=== PATIENT | female | born 1960 | race Caucasian/White ===

== ENCOUNTER 2019-12-21 06:09 | Emergency (ER) | payer MEDICAID ==
[~2019-12-21] VITALS: Ht 160 cm; Wt 77.1 kg
[2019-12-21 06:09] VITALS: BP_SYST 158
--- NOTE | 2019-12-21 06:09 | NUR ---
Placed in room 01 . Placed on cardiac rehabilitation program director, blood pressure machine and pulse oximeter. To gown for exam. Side rails up.
--- NOTE | 2019-12-21 06:09 | NUR ---
Pt presents to ER with daughter with c/o altered mental status. Pt states she "mixed crystal meth with water and drank it." Pt states she drank water with crystal meth 40 minutes ago. Pt states disorientation began 15 minutes prior to arrival with one episode of emesis. Pt states "my vision is bouncing and my body is shaking." Upon assessment, pt presents to have resting tremors and eye rolling to back of head. Pt is alert and oriented upon assessment. Pt breath sounds bilaterally even with no use of accessory muscles. Will continue to monitor.
--- NOTE | 2019-12-21 06:10 | NUR ---
ER Dr. Saab at bedside examining patient.
[2019-12-21] MEDS ORDERED: NACL 0.9% 1,000 ML IV ONE (06:15)
--- NOTE | 2019-12-21 06:15 | NUR ---
Lee SCHMIDT at bedside doing EKG.
--- NOTE | 2019-12-21 06:17 | NUR ---
Grant SCHMIDT at bedside attempting to get IV access and blood.
--- NOTE | 2019-12-21 06:18 | NUR ---
# 18 gauge angiocath placed to LAC. Use of asceptic technique. Opsite placed over site. Blood return noted. Blood for lab drawn from site. Flushed with 10 cc of normal saline. No evidence of infiltration noted. Patient tolerated well.
[2019-12-21 06:47] LABS: BASOPHILS % (AUTO) 0.5 % (0.0-2.0); EOSINOPHILS # (AUTO) 0.5 K/uL (0.0-0.4); EOSINOPHILS % (AUTO) 6.8 % (0.0-4.0); HEMATOCRIT 42.8 % (36-48); HEMOGLOBIN 13.9 g/dL (12.0-16.0); LYMPHOCYTES # (AUTO) 3.3 K/uL (1.0-5.5); LYMPHOCYTES % (AUTO) 47.1 % (20.5-51.5); MEAN CORPUSCULAR HEMOGLOBIN 28 pg (27-31); MEAN CORPUSCULAR HGB CONC 33 % (32-36); MEAN CORPUSCULAR VOLUME 85 fL (79.0-98.0); MONOCYTES # (AUTO) 0.5 K/uL (0.0-1.0); MONOCYTES % (AUTO) 7.1 % (1.7-9.3); NEUTROPHILS # (AUTO) 2.7 K/uL (1.8-7.7); NEUTROPHILS % (AUTO) 38.5 % (40.0-70.0); PLATELET COUNT (AUTO) 269 K/uL (130-430); RED BLOOD CELL COUNT(AUTO) 5.01 MIL/uL (4.2-6.2); RED CELL DISTRIBUTION WIDTH 14.5 % (9.0-15.0); WHITE BLOOD COUNT (AUTO) 6.9 K/uL (4.8-10.8)
--- NOTE | 2019-12-21 06:49 | NUR ---
Radiology at bedside.
[2019-12-21 07:00] LABS: ANION GAP 13 (5-15); CALCIUM 8.9 mg/dL (8.4-11.0); CHLORIDE 103 mmol/L (98-107); CREATININE 0.84 mg/dL (0.55-1.30); GLUCOSE 125 mg/dL (70-99); POTASSIUM 3.4 mmol/L (3.5-5.1); SODIUM SERUM 139 mmol/L (136-145); UREA NITROGEN, BLOOD 18 mg/dL (8-21)
[2019-12-21 07:03] LABS: GFR AFRICAN AMERICAN 89 mL/min (>90)
[2019-12-21 07:06] LABS: ALANINE AMINOTRANSFERASE 27 U/L (12-78); ALBUMIN 3.6 g/dL (3.4-4.8); ASPARTATE AMINOTRANSFERASE 19 U/L (10-37); TOTAL BILIRUBIN 0.7 mg/dL (0.0-1.0)
[2019-12-21 07:07] LABS: PROTHROMBIN TIME 9.9 SECS (9.5-12.5)
[2019-12-21 07:09] LABS: ALCOHOL, BLOOD < 3 mg/dL (<10)
--- NOTE | 2019-12-21 07:10 | NUR ---
Report given to ROXANA Barrera to endorse all care.
[2019-12-21] MEDS ORDERED: ONDANSETRON HCL 4 MG/2 ML VIAL IVP ONE (07:30)
--- NOTE | 2019-12-21 07:40 | NUR ---
Patient is resting comfortably in bed. Still unable to provide a urine sample. Declined I&O cath. aware.
--- NOTE | 2019-12-21 08:12 | NUR ---
Patient ambulated to the bathroom with assistance. Urine specimen collected and sent to the lab.
--- NOTE | 2019-12-21 08:16 | NUR ---
ER Dr. Painting at bedside examining patient.
[2019-12-21] MEDS ORDERED: LORazepam 2 MG/ML VIAL IVP ONE (08:30)
--- NOTE | 2019-12-21 08:35 | NUR ---
Administered Ativan IVP as ordered by Dr. Painting. Patient tolerated the medication well. See eMAR for details.
[2019-12-21 08:57] LABS: BILIRUBIN,URINE NEGATIVE (NEGATIVE); BLOOD, URINE NEGATIVE (NEGATIVE); CLARITY/URINE CLEAR (CLEAR); COLOR,URINE YELLOW (YELLOW); GLUCOSE,URINE NEGATIVE (NEGATIVE); KETONES,URINE NEGATIVE (NEGATIVE); LEUKOCYTE ESTERASE ,URINE NEGATIVE (NEGATIVE); NITRITE, URINE NEGATIVE (NEGATIVE); PROTEIN URINE NEGATIVE (NEGATIVE); UROBILINOGEN,URINE 0.2 (0.2-1.0)
[2019-12-21 09:06] LABS: BARBITURATE, URINE NEGATIVE (NEG <=200); BENZODIAZEPINE, URINE NEGATIVE (NEG <=150); COCAINE, URINE NEGATIVE (NEG <=150); OPIATE, URINE NEGATIVE (NEG <=100); PHENCYCLIDINE SCREEN,URINE NEGATIVE (NEG <=25); UR TRICYCLIC ANTIDEPRESSANTS NEGATIVE (NEG <=300); URINE METHADONE NEGATIVE (NEG <=200); URINE OXYCODONE SCREEN NEGATIVE (NEG <=100); URINE PROPOXYPHENE SCREEN NEGATIVE (NEG <=300)
[2019-12-21 09:07] LABS: CANNABINOID, URINE POSITIVE (NEG <=50); METHAMPHETAMINES SCREEN,URINE POSITIVE (NEG <=500); URINE AMPHETAMINE POSITIVE (NEG <=500)
--- NOTE | 2019-12-21 09:50 | NUR ---
Patient given written and verbal discharge instructions and verbalizes understanding. ER MD discussed with patient the results and treatment provided. Patient in stable condition. ID arm band removed. IV catheter removed intact and dressing applied, no active bleeding. Rx of Ativan given. Patient educated on pain management and to follow up with PMD. Pain Scale 0/10. Opportunity for questions provided and answered. Medication side effect fact sheet provided.
[2019-12-21 09:51] VITALS: BP_SYST 134
== END 2019-12-21 09:51 | disposition home or self-care (01) ==
LOC: SED 06:09
DX: F15.10 Other stimulant abuse, uncomplicated (principal); R41.0 Disorientation, unspecified; F17.290 Nicotine dependence, other tobacco product, uncomplicated; F12.90 Cannabis use, unspecified, uncomplicated
CPT/HCPCS: 36415; 71045; 80053; 80307; 81003; 82550; 84484; 85025; 85610; 85730; 93005; 96361; 96374; 96375; 99284; G0482; J2060; J2405; J7030